=== PATIENT | female | born 1960 | race African-American/Black ===

== ENCOUNTER → 2017-04-04 | Outpatient (CLI) | payer OTHER ==
[~2017-04-04] MED LIST: FLUT9.9S NS; GADOBUTROL 7.5 MMOL/7.5 ML VIAL IV ONE; LEVO25TA4 PO; MONT10TA9 PO
--- NOTE | 2017-04-04 16:53 | KCIC ---
History: Adhesions of the uterus, abnormal female examination and abnormal ultrasound. Comparison: Direct images of the previous pelvic ultrasound are not available. Report of pelvic ultrasound performed At [facility] in [place] on March 01, 2017 was reviewed. Technique: MRI of the pelvis with attention to gynecologic structures was performed using multiple planes and and sequences both prior to and after intravenous gadolinium, 5 mL Gadavist. Findings: There is motion artifact on multiple sequences, limiting evaluation. Posterior uterine fundus demonstrates 1.3 cm lesion with decreased T2 signal, favored to represent calcified subserosal leiomyoma. The anterior uterine body demonstrates 1.2 cm calcified intramural leiomyoma with similar characteristics. Posterior uterine body demonstrates 1.1 cm calcified intramural leiomyoma with similar characteristics. The endometrial thickness is 4 mm, within normal limits. Junctional zone has maximum of 5 mm. The 2 nabothian cysts are seen. Urinary bladder has unremarkable appearance. Impression: 1. Uterine leiomyomata. 2. Endometrial thickness is within normal limits for a postmenopausal female at 4 mm. Electronically signed by: Federico Mayers MD (04/04/2017 4:50 PM) [id number]
== END | disposition home or self-care (01) ==
LOC: KCIC MRI 10:36
PROVIDERS: ATTEND Family Medicine
DX: N85.6 Intrauterine synechiae (principal); D25.9 Leiomyoma of uterus, unspecified; N95.9 Unspecified menopausal and perimenopausal disorder
CPT/HCPCS: 72197; A9585